=== PATIENT | female | born 1945 | race Caucasian/White ===

== ENCOUNTER 2016-10-23 12:56 | Emergency (ER) | payer OTHER ==
--- NOTE | ~2016-10-23 | EKG ---
PATIENT: CHUCK CHRISTIE UNIT #: [id number] Ventricular Rate: 77 BPM Atrial Rate: 77 BPM P-R Interval: 108 ms QRS Duration: 86 ms Q-T Interval: 388 ms QTC Calculation(Bezet): 439 ms P Antonito: 49 degrees Calculated R Antonito: -16 degrees Calculated T Antonito: 125 degrees Diagnosis Line: Sinus rhythm with short [place] Diagnosis Line: ST and T wave abnormality, consider lateral ischemia Diagnosis Line: Abnormal ECG Diagnosis Line: No previous ECGs available Diagnosis Line: Confirmed by LAKEISHA COE MD ([id number]) on 10/24/2016 Diagnosis Line: 8:21:25 PM INTERPRETING MD: CAROLIN PAINTER
--- NOTE | ~2016-10-23 | CR72 ---
[facility] A Service of [facility] RADIOLOGY TEXT RESULTS PATIENT: CHUCK CHRISTIE LOCATION: [facility] : 47 UNIT #: [id number] AGE: [address]: Julia Worrell MD SEX: F ORDER DR: [id number] [facility] [address] [place], [place] [address] [id number] E MR#: [id number] Acc #: [id number] NAME: CHUCK CHRISTIE : 1945 SEX: F STUDY DATE/TIME: 10/23/2016 14:48 UNIT: [facility] ROOM: STUDY DESCRIPTION: CR Chest Single View Portable Attending Physician: Julia Worrell M.D. Ordering Physician: Julia Worrell M.D. Primary Care Physician: Anne Mendoza M.D. MEDICAL IMAGING REPORT This report is preliminary unless electronic signature is present EXAM AP portable chest 10/23/2016 at 14:48 HISTORY Sepsis with low blood pressure today. Generalized weakness. Diabetes. COMPARISON None. FINDINGS Linear opacity in the lingular left lower lobe favored to represent scarring or atelectasis. No dense lung consolidations are identified. Benign calcified granulomatous changes are seen within the left midlung zone. Heart size is mildly enlarged. Pulmonary vascular distribution is normal. No pleural effusion or pneumothorax. Old fracture of the proximal right humeral metaphysis with adjacent heterotopic ossification. There is widening of the right glenohumeral joint space which could represent chronic rotator cuff injury or instability. IMPRESSION 1. Linear scarring or linear atelectasis in the lingular left lower lobe. Otherwise, no acute chest findings. 2. Mild cardiomegaly. 3. Noncalcified granulomatous changes. 4. Widening of the right shoulder joint could represent chronic rotator cuff injury. Signs of old right proximal humeral fracture. Dictated by... Madelyn Coughlin M.D. THIS IS AN ELECTRONICALLY VERIFIED REPORT [facility] A Service of [facility] RADIOLOGY TEXT RESULTS PATIENT: CHUCK CHRISTIE LOCATION: [facility] : 47 UNIT #: [id number] AGE: [address]: Julia Worrell MD SEX: F ORDER DR: Madelyn Coughlin M.D. at 10/24/2016 10:02 AM CHICHO/opal TD: 10/23/2016 15:58 JOB #: [id number] MEDICAL IMAGING REPORT Page 1 of 1 COPY
[2016-10-23 14:42] LABS: BASOPHIL# 0.1 X10e3 (0-0.3); BASOPHIL% 1.1 % (0-2.5); EOSINOPHIL# 0.3 X10e3 (0-0.7); HEMATOCRIT 47.4 % (35.0-45.0); HEMOGLOBIN 15.6 gm/dL (12.0-16.0); LYMPHOCYTE# 1.6 X10e3 (1.0-3.5); LYMPHOCYTE% 18.3 % (17.0-45.0); MEAN CORPUSCULAR HGB CONC 32.9 g/dL (30-36); MEAN PLATELET VOLUME 11.6 FL (6.5-11.5); MONOCYTE# 0.7 X10e3 (0-1.0); MONOCYTE% 8.4 % (3.0-12.0); NEUTROPHIL# 5.9 X10e3 (1.5-7.1); NEUTROPHIL% 69.2 % (40-75); PLATELET COUNT 167 X10e3 (140-420); RED BLOOD COUNT 5.21 X10e (3.90-5.30); WHITE BLOOD COUNT 8.6 X10e3 (4.0-10.5)
[2016-10-23 14:43] LABS: DIFF IND NO
[2016-10-23 15:00] LABS: ALBUMIN SERUM 3.9 g/dL (3.5-5.0); BILIRUBIN, DIRECT 0.1 mg/dL (0.0-0.2); BILIRUBIN,INDIRECT 0.4 mg/dL (0.0-0.9); BILIRUBIN,TOTAL 0.5 mg/dL (0.2-2.0); CALCIUM SERUM 9.4 mg/dL (8.4-10.2); CREATININE SERUM 1.3 mg/dL (0.6-1.4); GLOM FILT RATE Estimated 41.5 mL/min (>60); POTASSIUM 3.8 mmol/L (3.5-5.1); PROTEIN TOTAL SERUM 7.2 g/dL (6.0-8.3)
[2016-10-23 15:04] LABS: INR 0.9; PARTIAL THROMBOPLASTIN TIME 23.6 SECONDS (23.5-31.3); PROTHROMBIN TIME (PATIENT) 10.3 SECONDS (10.0-11.7)
[2016-10-23 15:38] LABS: URINE SOURCE CLEAN CATCH
[2016-10-23 15:45] LABS: URINE APPEARANCE CLEAR; URINE BILIRUBIN NEG (NEG); URINE BLOOD NEG (NEG); URINE COLOR YELLOW; URINE GLUCOSE >1000 MG/DL (NEG); URINE KETONE TRACE (NEG); URINE LEUKOCYTE ESTERASE NEG (NEG); URINE NITRATE NEG (NEG); URINE PROTEIN 1+ (NEG)
[2016-10-23 15:47] LABS: URBCS1 AUWI 0-2 /[HPF] (0-2); URINE BACTERIA AUWI NEG (NEGATIVE); URINE SQUAMOUS EPITHELIAL CELL OCC /[HPF]; UWBCS1 AUWI 0-2 (0-5)
[2016-10-23 15:59] LABS: U HYALINE CASTS AUWI 0-2 /[LPF]
[2016-10-23 16:00] LABS: CULTURE INDICATED? NO
== END 2016-10-23 17:28 | disposition home or self-care (01) ==
LOC: CED 12:56
PROVIDERS: Student in an Organized Health Care Education/Training Program
DX: E86.0 Dehydration (principal); E11.9 Type 2 diabetes mellitus without complications; I10 Essential (primary) hypertension; Z88.0 Allergy status to penicillin
CPT/HCPCS: 36415; 71010; 80048; 80076; 81003; 82947; 83605; 83735; 85025; 85610; 85730; 87040; 93005; 96360; 96361; 99285